=== PATIENT | female | born 1960 | race Native Hawaiian/Other Pacific Islander ===

== ENCOUNTER 2016-08-16 12:23 | Emergency (ER) | payer OTHER ==
[~2016-08-16] VITALS: Ht 170.2 cm; Wt 72.0 kg
[2016-08-16 12:24] VITALS: BP 123/65; PULSE 84; RESP 12; TEMP 98.9; O2SAT 97
[2016-08-16] MEDS ORDERED: LEVO75TA3 PO (12:38)
[2016-08-16] MEDS ORDERED: PRED5TAB PO (12:38)
[2016-08-16] MEDS ORDERED: NEXI20CA PO (12:38)
--- NOTE | 2016-08-16 12:43 | PD ---
HPI . Headache Chief Complaint: Dizziness Time Seen by Provider: 12:31 Travel History International Travel<30 days: No Contact w/Intl Traveler<30days: No Traveled to known affect area: No History of Present Illness HPI Patient presents with a 5 day history of headache and a three-day history of dizziness. She states that she has taken Tylenol for the headache with some relief. She does describe the dizziness as a spinning sort of sensation. She actually states that it feels more like she is off balance. She describes it as being like she is drawn or she is just getting off of a [id number]. She denies any associated fever. She denies any associated nasal congestion. She denies any nausea or vomiting. 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 [facility] Past Medical History Arthritis: Yes (osteo, RA ) Medical other: Yes (reynaud's syndrome , scleraderma) Influenza Vaccination: No ?: Not Past Surgical History Section: Yes Social History Alcohol Use: No Tobacco Use: Yes (1 ppd ) Substance Use: No Allergies-Medications (Allergen,Severity, Reaction): Coded Allergies: Penicillin (Verified Allergy, Unknown, 08/16/16) Reported Meds & Prescriptions Reported Meds & Active Scripts Active Reported Nexium (Esomeprazole DR) 20 Mg Capdr 20 Mg PO DAILY Prednisone 5 Mg Tab 5 Mg PO DAILY Levothyroxine (Levothyroxine Sodium) 75 Mcg Tab 75 Mcg PO DAILY Review of Systems Except as stated in HPI: all other systems reviewed are Neg General / Constitutional: No: Fever, Chills Eyes: No: Blurred Vision HENT: Positive: Headaches, Lightheadedness Gastrointestinal: No: Nausea, Vomiting Neurologic: Positive: Dizziness, Headache, No: Focal Abnormalities, Coordination Problem, Ataxia, Change in Mentation, Slurred Speech, Incontinence Physical Exam Narrative GENERAL: This patient ambulates to the room without any difficulty. SKIN: Warm and dry. The skin of several of her toes is cyanotic compatible with her history of Raynaud's. There is no redness or warmth associated with this however. HEAD: Atraumatic. Normocephalic. EYES: Pupils equal and round. EOMs intact. ENT: No nasal bleeding or discharge. Mucous membranes pink and moist. NECK: Trachea midline. Neck supple. CARDIOVASCULAR: Regular rate and rhythm. Heart sounds are normal. RESPIRATORY: No accessory muscle use. Lungs are clear with full air movement throughout. GASTROINTESTINAL: Abdomen soft, non-tender, nondistended. MUSCULOSKELETAL: No obvious deformities. No edema. NEUROLOGICAL: Awake and alert. No obvious cranial nerve deficits. Motor grossly within normal limits. Normal speech. PSYCHIATRIC: Appropriate mood and affect; insight and judgment normal. Data Data Last Documented VS Vital Signs Date Time Temp Pulse Resp B/P Pulse Ox O2 Delivery O2 Flow Rate FiO2 08/16/16 12:24 98.9 84 12 123/[address] Brain W/O Iv Contrast(Rout) (08/16/16 12:32) Iv Access Insert/Monitor (08/16/16 12:32) Sodium Chloride 0.9% Flush (Ns Flush) (08/16/16 12:45) Prochlorperazine Inj (Compazine Inj) (08/16/16 12:45) Diphenhydramine Inj (Benadryl Inj) (08/16/16 12:45) MDM Medical Decision Making Medical Screen Exam Complete: Yes Emergency Medical Condition: Yes Differential Diagnosis Differential diagnosis of headache includes but is not limited to migraine, muscle contraction headache, brain tumor, brain bleed Narrative Course Patient presents for evaluation and treatment of headache associated with dizziness. The dizziness sounds like vertigo. Head CT is negative for acute finding. The patient face and her headache is resolved. She is still complaining with some dizziness. However, she would like to go home at this point. I offered Valium but she declined stating that she would just like to go home and rest. 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
[2016-08-16] MEDS ORDERED: SODIUM CHLORIDE 0.9% FLUSH 5 ML FLUSH IVF PRN (12:45)
[2016-08-16] MEDS ORDERED: diphenhydrAMINE HCL 50 MG/ML VIAL IVP ONE (12:45)
[2016-08-16] MEDS ORDERED: PROCHLORPERAZINE INJ 10 MG/2 ML VIAL IVP ONE (12:45)
--- NOTE | 2016-08-16 13:18 | RADRPT ---
EXAM DATE/TIME: 08/16/2016 13:01 [facility] COMPARISON: No previous studies available for comparison. INDICATIONS : Headache four five days, around left eye with dizziness. RADIATION DOSE: 35.67 CTDIvol (mGy) MEDICAL HISTORY : Arthritis. SURGICAL HISTORY : None. ENCOUNTER: Initial ACUITY: 4 - 6 days PAIN SCALE: 8/10 LOCATION: Left cranial TECHNIQUE: Multiple contiguous axial images were obtained of the head. Using automated exposure control and adj ustment of the mA and/or kV according to patient size, radiation dose was kept as low as reasonably a chievable to obtain optimal diagnostic quality images. FINDINGS: CEREBRUM: The ventricles are normal for age. No evidence of midline shift, mass lesion, hemorrhage or acute in farction. No extra-axial fluid collections are seen. POSTERIOR FOSSA: The cerebellum and brainstem are intact. The 4th ventricle is midline. The cerebellopontine angle i s unremarkable. EXTRACRANIAL: The visualized portion of the orbits is intact. SKULL: The calvaria is intact. No evidence of skull fracture. CONCLUSION: Unremarkable exam. Handy Abdalla MD on August 16, 2016 at 13:14 Board Certified Radiologist. This report was verified electronically.
[2016-08-16] MEDS ORDERED: MECL1TAB42 PO (13:55)
[2016-08-16] MEDS ORDERED: BUTA1CAP PO (13:55)
== END 2016-08-16 14:04 | disposition home or self-care (01) ==
LOC: NEPE 12:23
DX: R51 Headache (principal); R42 Dizziness and giddiness; F17.210 Nicotine dependence, cigarettes, uncomplicated
CPT/HCPCS: 70450; 96374; 96375; 99284; J0780; J1200